=== PATIENT | female | born 1960 | race African-American/Black ===

== ENCOUNTER 2019-01-24 11:14 | Inpatient (IN) ==
[2019-01-24] MEDS ORDERED: ACETAMINOPHEN 325 MG TABLET PO PRN (11:45)
[2019-01-24] MEDS ORDERED: ONDANSETRON 4 MG/2 ML VIAL IV PRN (11:45)
[2019-01-24] MEDS ORDERED: MAGNESIUM HYDROXIDE SUSP 30 ML UDCUP PO PRN (11:45)
[2019-01-24] MEDS ORDERED: SODIUM CHLORIDE 0.9% 1,000 ML IV PRN (11:53)
[2019-01-24] MEDS ORDERED: ALPRAZolam 0.5 MG TABLET PO PRN (12:01)
[2019-01-24 13:48] LABS: Basophils % 0.4 % (0.0-0.8); Eosinophils # 0.1 10*3/uL (0.0-0.87); Eosinophils % 0.7 % (0.00-10.9); Hemoglobin 6.7 GM/DL (12.0-16.0); Immature Granulocytes % 0.4 %; Immature Granulocytes Absolute 0.03 #; Lymphocytes # 1.6 10*3/uL (1.4-4.0); Lymphocytes % 20.3 % (21.3-54.2); Mean Corpuscular HGB Conc 27.9 GM/DL (32-36); Mean Corpuscular Volume 75.7 FL (87-102); Mean Platelet Volume 12.1 FL (9.6-12.0); Monocytes % 11.4 % (1.7-12.7); Neutrophils % 66.8 % (38.7-73.9); Platelet Count 331 T/CUMM (130-400); Red Blood Count 3.17 MC/CUMM (3.8-5.5); Red Cell Distribution Width 18.7 % (9.3-17.3); White Blood Count 7.6 T/CUMM (4-12)
[2019-01-24 14:01] LABS: Alanine Aminotransferase 21 U/L (13-56); Albumin 3.1 G/DL (3.4-5.0); Alkaline Phosphatase 81 U/L (45-117); Aspartate Amino Transferase 14 U/L (0-37); Bilirubin,Total < 0.39 MG/DL (0.2-1.0); Blood Urea Nitrogen 10 MG/DL (7-18); Calcium 8.9 MG/DL (8.5-10.1); Glucose 113 MG/DL (74-106); Osmolality,Calculated 280.3 MOS/KG (273-304); Total Protein 8.1 G/DL (6.4-8.3)
[2019-01-24 14:06] LABS: Estimated Glom Filtration Rate 0 ML/MIN
[2019-01-24 15:01] LABS: Sedimentation Rate-Westergren 95 MM/HR (0-30)
[2019-01-24 16:17] LABS: Folate 20.9 NG/ML (5.4-24.0); Vitamin B12 316 PG/ML (211-911)
[2019-01-24 18:03] LABS: Apearance,Urine CLEAR (Clear); Bilirubin,Urine Negative (Negative); Blood, Urine Negative (Negative); Glucose,Urine (UA) Negative (Negative); Ketones,Urine Negative (Negative); Mucus,Urine Occasional /LPF (Occasional); Nitrite,Urine Negative (Negative); Protein,Urine Negative; Squamous Epithelial Cell,Urine Occasional /HPF (0-10); Urine Color Straw (Yellow); Urine Urobilinogen < 2.0 EU/DL (0.2-1.0); WBC,Urine <1 /HPF (0-6)
[2019-01-24] MEDS: SODIUM CHLORIDE 0.45% 1,000 ML IV SCH (20:34)
[2019-01-24] MEDS: METOPROLOL TARTRATE 25 MG TABLET PO SCH (21:43)
[2019-01-24] MEDS: FLUoxetine 20 MG CAPSULE PO SCH (21:43)
[2019-01-24] MEDS: PREGABALIN 100 MG CAPSULE PO SCH (21:43)
[2019-01-24] MEDS: AMITRIPTYLINE 25 MG TABLET PO SCH (21:43)
[2019-01-24 21:55] LABS: Hematocrit 29.3 VOL% (35.7-47.0); Hemoglobin 8.7 GM/DL (12.0-16.0)
[2019-01-25] MEDS: SODIUM CHLORIDE 0.45% 1,000 ML IV SCH ×3 (04:28→17:23)
[2019-01-25] MEDS: LEVOTHYROXINE 50 MCG TABLET PO SCH (05:41)
[2019-01-25 05:43] LABS: Basophils % 0.3 % (0.0-0.8); Eosinophils # 0.1 10*3/uL (0.0-0.87); Eosinophils % 0.9 % (0.00-10.9); Hematocrit 29.7 VOL% (35.7-47.0); Hemoglobin 8.6 GM/DL (12.0-16.0); Immature Granulocytes % 0.6 %; Immature Granulocytes Absolute 0.04 #; Lymphocytes % 30.8 % (21.3-54.2); Mean Corpuscular Volume 78.6 FL (87-102); Mean Platelet Volume 11.8 FL (9.6-12.0); Monocytes % 13.8 % (1.7-12.7); Neutrophils % 53.6 % (38.7-73.9); Platelet Count 285 T/CUMM (130-400); Red Blood Count 3.78 MC/CUMM (3.8-5.5); Red Cell Distribution Width 19.1 % (9.3-17.3); White Blood Count 6.5 T/CUMM (4-12)
[2019-01-25 06:08] LABS: Calcium 8.4 MG/DL (8.5-10.1); Osmolality,Calculated 280.1 MOS/KG (273-304); VLDL CHOLESTEROL 18.6 MG/DL
[2019-01-25] MEDS: PREGABALIN 100 MG CAPSULE PO SCH ×2 (08:45→21:41)
[2019-01-25] MEDS: FLUoxetine 20 MG CAPSULE PO SCH ×2 (08:45→21:41)
[2019-01-25] MEDS: hydroCHLOROthiazide 12.5 MG CAPSULE PO SCH (08:45)
[2019-01-25] MEDS: predniSONE 5 MG TABLET PO SCH (08:45)
[2019-01-25] MEDS: METOPROLOL TARTRATE 25 MG TABLET PO SCH ×2 (08:45→21:41)
[2019-01-25] MEDS: PANTOPRAZOLE 40 MG TABLET PO SCH (08:46)
[2019-01-25] MEDS: AMITRIPTYLINE 25 MG TABLET PO SCH (21:41)
[2019-01-26] MEDS: LEVOTHYROXINE 50 MCG TABLET PO SCH (05:43)
[2019-01-26 06:39] LABS: Basophils % 0.3 % (0.0-0.8); Eosinophils # 0.1 10*3/uL (0.0-0.87); Eosinophils % 1.3 % (0.00-10.9); Hematocrit 29.3 VOL% (35.7-47.0); Immature Granulocytes % 0.5 %; Immature Granulocytes Absolute 0.03 #; Lymphocytes % 32.7 % (21.3-54.2); Mean Corpuscular Volume 79.8 FL (87-102); Mean Platelet Volume 10.8 FL (9.6-12.0); Monocytes % 13.2 % (1.7-12.7); Platelet Count 259 T/CUMM (130-400); Red Blood Count 3.67 MC/CUMM (3.8-5.5); White Blood Count 6.2 T/CUMM (4-12)
[2019-01-26 06:40] LABS: Hemoglobin 8.5 GM/DL (12.0-16.0)
[2019-01-26] MEDS: predniSONE 5 MG TABLET PO SCH (09:21)
[2019-01-26] MEDS: PANTOPRAZOLE 40 MG TABLET PO SCH (09:21)
[2019-01-26] MEDS: FLUoxetine 20 MG CAPSULE PO SCH ×2 (09:21→21:33)
[2019-01-26] MEDS: hydroCHLOROthiazide 12.5 MG CAPSULE PO SCH (09:21)
[2019-01-26] MEDS: PREGABALIN 100 MG CAPSULE PO SCH ×2 (09:21→21:33)
[2019-01-26] MEDS: METOPROLOL TARTRATE 25 MG TABLET PO SCH ×2 (09:21→21:33)
[2019-01-26] MEDS: AMITRIPTYLINE 25 MG TABLET PO SCH (21:33)
[2019-01-27] MEDS: SODIUM CHLORIDE 0.45% 1,000 ML IV SCH ×2 (01:34→15:48)
[2019-01-27 04:46] LABS: Basophils % 0.4 % (0.0-0.8); Eosinophils # 0.1 10*3/uL (0.0-0.87); Eosinophils % 0.9 % (0.00-10.9); Hemoglobin 8.9 GM/DL (12.0-16.0); Immature Granulocytes % 0.6 %; Immature Granulocytes Absolute 0.04 #; Lymphocytes % 29.5 % (21.3-54.2); Mean Corpuscular HGB Conc 29.7 GM/DL (32-36); Mean Corpuscular Volume 78.1 FL (87-102); Mean Platelet Volume 11.5 FL (9.6-12.0); Monocytes % 12.5 % (1.7-12.7); Neutrophils % 56.1 % (38.7-73.9); Platelet Count 282 T/CUMM (130-400); Red Blood Count 3.84 MC/CUMM (3.8-5.5); Red Cell Distribution Width 20.4 % (9.3-17.3); White Blood Count 6.7 T/CUMM (4-12)
[2019-01-27] MEDS: LEVOTHYROXINE 50 MCG TABLET PO SCH (06:33)
[2019-01-27] MEDS: hydroCHLOROthiazide 12.5 MG CAPSULE PO SCH (09:24)
[2019-01-27] MEDS: METOPROLOL TARTRATE 25 MG TABLET PO SCH (09:24)
[2019-01-27 09:30] LABS: Hemoglobin A1 (Alkaline) 98.2 % (96.5-98.5); Hemoglobin A2 (Alkaline) 1.8 % (1.5-3.5)
[2019-01-27] MEDS ORDERED: LIDOCAINE 2% 5 ML VIAL ONE (10:00)
[2019-01-27] MEDS ORDERED: PROPOFOL 200 MG/20 ML VIAL IV ONE (10:00)
[2019-01-27 11:19] VITALS: BP 170/89
[2019-01-27] MEDS: predniSONE 5 MG TABLET PO SCH (12:37)
[2019-01-27] MEDS: FLUoxetine 20 MG CAPSULE PO SCH (12:37)
[2019-01-27] MEDS: PREGABALIN 100 MG CAPSULE PO SCH (12:37)
[2019-01-27] MEDS: PANTOPRAZOLE 40 MG TABLET PO SCH (12:37)
[2019-01-27] MEDS ORDERED: BACLOFEN 10 MG TABLET PO PRN (13:57)
[2019-01-27] MEDS ORDERED: FERROUS SULFATE 325 MG TABLET PO SCH (17:00)
== END 2019-01-27 15:50 | disposition home or self-care (01) | DRG 812 ==
LOC: N.2E 12:47
PROVIDERS: ADMIT Family Medicine; ATTEND Family Medicine